=== PATIENT | female | born 2000 | race Caucasian/White ===

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

== ENCOUNTER 2022-04-10 16:18 | Emergency (ER) | payer OTHER ==
[2022-04-10 16:52] LABS: HEMOGLOBIN 13.7 gm/dl (12.3-15.3); RED BLOOD COUNT 4.86 M/UL (4.00-5.10); WHITE BLOOD COUNT 9.2 K/UL (4.5-11.0)
[2022-04-10 17:22] LABS: BUN/CREATININE RATIO 13 (0-10)
== END 2022-04-10 22:02 | disposition home or self-care (01) ==
LOC: ER1 16:18
PROVIDERS: Family Medicine
DX: R07.9 Chest pain, unspecified (principal); K21.9 Gastro-esophageal reflux disease without esophagitis; Z20.822 Contact with and (suspected) exposure to COVID-19
CPT/HCPCS: 71046; 80053; 82550; 82553; 84484; 85025; 85379; 93005; 99285; U0002